=== PATIENT | male | born 1970 | race Caucasian/White ===

== ENCOUNTER 2016-12-14 16:22 | Emergency (ER) | payer SELFPAY ==
[~2016-12-14] VITALS: Ht 175.3 cm; Wt 81.6 kg
[2016-12-14 16:53] VITALS: BP 156/77
--- NOTE | 2016-12-14 17:19 | PHYS DOC ---
Past Medical History Past Medical History: No Pertinent History Past Surgical History: No Surgical History Alcohol Use: Occasionally Drug Use: None Adult General Chief Complaint Chief Complaint: KNEE INJURY HPI HPI 46-year-old male presenting to the emergency department today with left knee swelling. He has been working all day. 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 He denies any recent injury to his knee. He denies any pain in his knee. That today. Location left knee. Duration constant. No alleviating or exacerbating factors present. Review of systems is negative for chest pain shortness of breath abdominal pain nausea vomiting fevers or chills. All other review of systems is negative unless otherwise noted in history of present illness. ED course: 38-year-old gentleman presenting to the emergency department with a left knee effusion without pain. Pertinent physical exam findings showed no erythema of the knee. Neurovascularly intact distally with a palpable pulse. I recommended the patient use rest ice compression and elevation on the effusion for now and follow up with his doctor next few days if his symptoms continue. To return to the emergency department if his symptoms worsen. Review of Systems Review of Systems SEE ABOVE. Allergies Allergies Allergies Coded Allergies Type Severity Reaction Last Updated Verified No Known Drug Allergies 12/14/16 No Physical Exam Physical Exam SEE ABOVE Constitutional: Well developed, well nourished, no acute distress, non-toxic appearance. [] HENT: Normocephalic, atraumatic, bilateral external ears normal, oropharynx moist, no oral exudates, nose normal. [] Eyes: PERRLA, EOMI, conjunctiva normal, no discharge. [] Neck: Normal range of motion, no tenderness, supple, no stridor. [] Cardiovascular:Heart rate regular rhythm, no murmur [] Lungs & Thorax: Bilateral breath sounds clear to auscultation [] Abdomen: Bowel sounds normal, soft, no tenderness, no masses, no pulsatile masses. [] Skin: Warm, dry, no erythema, no rash. [] Back: No tenderness, no CVA tenderness. [] Extremities: SEE ABOVE Neurologic: Alert and oriented X 3, normal motor function, normal sensory function, no focal deficits noted. [] Psychologic: Affect normal, judgement normal, mood normal. [] Current Patient Data Vital Signs Vital Signs Date Time Temp Pulse Resp B/P (MAP) Pulse Ox O2 Delivery O2 Flow Rate FiO2 7/6/17 16:53 98.2 75 16 156/77 (103) 98 Room Air 98.2 EKG EKG [] Radiology/Procedures Radiology/Procedures [] Course & Med Decision Making Course & Med Decision Making Pertinent Labs and Imaging studies reviewed. (See chart for details) [] Dragon Disclaimer Dragon Disclaimer This electronic medical record was generated, in whole or in part, using a voice recognition dictation system. Departure Departure Impression: Primary Impression: Knee effusion, left Disposition: HOME, SELF-CARE Condition: STABLE Referrals: NO PCP (PCP) TYRON FERNANDEZ MD Patient Instructions: Knee Effusion, [id number] Additional Instructions: Thank you for allowing us to participate in your care today. Followup with your primary care physician in 3 days if your symptoms do not improve. Call your Primary Doctor tomorrow and inform them of your visit today. If you do not have a primary care provider you can ask for a list of our primary care providers. Return to the emergency department you have any new or concerning findings. This should be evaluated by the primary care physician and any necessary consulting services for continued management within a few days after discharge. Return to emergency room if you have any new or concerning symptoms including but not limited to fever, chills, nausea, vomiting, intractable pain, any new rashes, chest pain, shortness of air, uncontrolled bleeding, difficulty breathing, and/or vision loss. ROSALIE BARNES MD Dec 14, 2016 17:19
== END 2016-12-14 17:27 | disposition home or self-care (01) ==
LOC: ER 16:22
DX: M25.462 Effusion, left knee (principal)
CPT/HCPCS: 99281